=== PATIENT | female | born 1965 ===

== ENCOUNTER 2018-04-06 08:32 | Emergency (ER) | payer BC, OTHER ==
[2018-04-06 08:45] VITALS: BMI 31.3
[2018-04-06 08:46] VITALS: RESP 19; O2SAT 98
--- NOTE | 2018-04-06 10:00 | ED PDOC ---
Lower Extremity Pain/Injury Time Seen by Provider: 04/06/18 09:45 Chief Complaint (Nursing): Lower Extremity Problem/Injury Chief Complaint (Provider): Lower Extremity Problem/Injury History Per: Patient History/Exam Limitations: no limitations Additional Complaint(s): Angelica Miranda is a 53 y/o female with a past medical history of plantar fascitis who presents to the ED complaining of right foot pain s/p accidentally stubbing her 3rd and 4th toe on a furniture. Patient reports she was moving things around her house and her foot collided with a heavy ottoman furniture. She reports feeling immediate pain but was able to continue walking and bearing weight on her foot. Patient rates the pain at worst as 7/10 when bearing weight. Patient was offered pain medication but she refused currently while in the ED. She presents to the ED for further evaluation. She denies any past orthopedic surgeries. -No numbness and tingling -No fever, chills, sweats -No chest pain, shortness of breath, or palpitations -No abdominal pain, nausea, vomiting - pt denied LOC/fall/sick contact pt is here for further eval pt's without other complaints PCP: None provided - Hip Description Of Injury: Struck With Object - Ankle/Foot Description Of Injury: Struck With Object Past Medical History Reviewed: Historical Data, Nursing Documentation, Vital Signs Vital Signs: Last Vital Signs Temp 97 F L 04/06/18 08:45 Pulse 80 04/06/18 08:45 Resp 19 04/06/18 08:45 BP 129/86 04/06/18 08:45 Pulse Ox 98 04/06/18 08:45 - Medical History Other PMH: Plantar fasciitis - Surgical History Surgical History: No Surg Hx - Family History Family History: States: Unknown Family Hx - Social History Drugs: Denies - Home Medications Home Medications: Ambulatory Orders Medication Instructions Recorded Naproxen 375 mg PO Q8 PRN #21 tab 06/27/14 Clindamycin [Cleocin] 300 mg PO TID #30 cap 12/08/15 Ibuprofen [Motrin] 600 mg PO QID PRN #30 tab 04/06/18 - Allergies Allergies/Adverse Reactions: Allergies Allergy/AdvReac Type Severity Reaction Status Date / Time No Known Allergies Allergy Verified 12/18/15 12:31 Review of Systems ROS Statement: Except As Marked, All Systems Reviewed And Found Negative Constitutional: Negative for: Fever, Chills, Sweats Cardiovascular: Negative for: Chest Pain Respiratory: Negative for: Cough, Shortness of Breath Gastrointestinal: Negative for: Nausea, Vomiting, Abdominal Pain Musculoskeletal: Positive for: Foot Pain (right 3rd and 4th toes). Negative for : Shoulder Pain, Arm Pain, Back Pain, Other (gross bleeding) Skin: Negative for: Rash, Lesions Neurological: Negative for: Weakness Physical Exam - Reviewed Nursing Documentation Reviewed: Yes Vital Signs Reviewed: Yes - Physical Exam Appears: Positive for: Well, Non-toxic, No Acute Distress (alert/awake, GCS = 15 , oriented x 3, NAD, comfortable, sitting on her exam bed, follows command with ease) Head Exam: Positive for: ATRAUMATIC, NORMAL INSPECTION, NORMOCEPHALIC Skin: Positive for: Normal Color, Warm, Dry. Negative for: Rash Eye Exam: Positive for: Normal appearance, EOMI, PERRL. Negative for: Nystagmus ENT: Positive for: Normal ENT Inspection Neck: Positive for: Normal, Painless ROM, Supple, Trachea Midline. Negative for : Decreased ROM Cardiovascular/Chest: Positive for: Regular Rate, Rhythm, Chest Non Tender, Other (+S1, +S2, no m/r/r). Negative for: Murmur Respiratory: Positive for: Normal Breath Sounds, Other (CTA b/l, no w/r/r, no accessory muscle use noted). Negative for: Respiratory Distress Gastrointestinal/Abdominal: Positive for: Normal Exam, Bowel Sounds, Soft, Other (well nourished female, no focal tenderness, no yanez's sign, no mcburney 's point tenderness). Negative for: Tenderness Back: Positive for: Normal Inspection. Negative for: L CVA Tenderness, R CVA Tenderness, Vertebral Tenderness, Decreased ROM Extremity: Positive for: Normal ROM, Tenderness, Other (+ right 3-4th toe mild swelling/ecchymosis/tenderness noted on exam, decr ROM; no gross deformities noted; strength 5/5 grossly intact in all limbs, neurovasc intact b/l, + ambulatory, + weight bearing). Negative for: Pedal Edema, Deformity Neurologic/Psych: Positive for: Alert, pigment grinder II-XII, Oriented. Negative for: Motor/Sensory Deficits - ECG O2 Sat by Pulse Oximetry: 98 (RA) Pulse Ox Interpretation: Normal - Radiology X-Ray: Interpreted by Me, Viewed By Me - Progress ED Course And Treament: pt received jeronimo tape to 3-4th right toes, randi wrap and provided orthopedic shoes for comfort pt is made aware of her medical results pt is encouraged min weight bearing, avoid prolonged walking/running pt is encouraged RICE txt pt will f/u as directed pt will be discharged home right foot xray: NO acute fx/dislocation noted Re-evaluation Time: 11:00 Condition: Re-examined, Improved Medical Decision Making Medical Decision Making: Time: 09:50 Impression: r/o fx, likely sprain Differential Diagnosis: I have consider all the differential diagnosis regarding pt's chief medical complaints/clinical findings, including but are not limited to: r/o fx, likely sprain Plan:(Include these two) --Motrin 600 mg PO --POC urine --RAD - Right foot 3 views -- supportive care -- observe Scribe Attestation: Documented by Camilo Cruz, acting as a scribe for Abdirahman Ribeiro MD. Provider Scribe Attestation: All medical record entries made by the Scribe were at my direction and personally dictated by me. I have reviewed the chart and agree that the record accurately reflects my personal performance of the history, physical exam, medical decision making, and the department course for this patient. I have also personally directed, reviewed, and agree with the discharge instructions and disposition. Disposition - Clinical Impression Clinical Impression: Toe contusion - Patient ED Disposition Is Patient to be Admitted: No Counseled Patient/Family Regarding: Studies Performed, Diagnosis, Need For Followup, Rx Given - Disposition Referrals: Anselmo Hess DPM [Staff Provider] - Darion Mckeon MD [Staff Provider] - [facility] [Outside] [facility] [Outside] [facility] [Outside] [facility] [Outside] Disposition: Routine/Home Disposition Time: 10:58 Condition: STABLE Additional Instructions: Make sure to see your doctor in 1-2 days DRINK PLENTY OF FLUIDS take your medications as prescribed AVOID heavy weight bearing ice your toes/foot 15min/hr over the next 1-2 days RETURN TO ED IF worse pain, cant breath, persistent vomiting, high fever >101- 102 for hours, altered behavior, slurr speech, facial changes, focal weakness ( arm/leg or both), unable to urinate, heavy/persistent bleeding, passing out, chest pain, or other medical emergencies Prescriptions: Ibuprofen [Motrin] 600 mg PO QID PRN #30 tab PRN Reason: Pain, Mild (1-3) Instructions: Contusion (DC), Toe Injury Forms: [facility] ([place]), [facility] ED School/Work Excuse Print Language: KHMER
[2018-04-06 11:10] VITALS: BP 127/80; PULSE 76; TEMP 97.6
--- NOTE | 2018-04-06 13:07 | RAD ---
Date of service: 04/06/2018 PROCEDURE: Right Foot Radiographs. HISTORY: stubbed toes this morning, right 3/4th toe pain COMPARISON: None. FINDINGS: BONES: Normal. No fracture. JOINTS: Normal. SOFT TISSUES: Normal. OTHER FINDINGS: None. IMPRESSION: Normal right foot radiographs.
== END 2018-04-06 11:11 | disposition home or self-care (01) ==
LOC: H.ER 08:32
DX: S90.121A Contusion of right lesser toe(s) without damage to nail, initial encounter (principal); W22.8XXA Striking against or struck by other objects, initial encounter; Y92.89 Other specified places as the place of occurrence of the external cause